=== PATIENT | female | born 1940 | race Caucasian/White ===

== ENCOUNTER 2016-04-21 10:38 | Emergency (ER) | payer MEDICAID, MEDICARE ==
[~2016-04-21 10:38] MED LIST: Sodium Chloride 0.9% 1,000 ML BAG ONE; Sodium Chloride 0.9% 100 ML BAG ONE
[2016-04-21] MEDS ORDERED: Acetaminophen 500 MG TAB ONE (11:18)
[2016-04-21 11:23] LABS: Bilirubin Negative (Negative); Blood, Urine Trace (Negative); Clarity Clear (Clear); Glucose, Urine (Dipstick) Negative (Negative); Leukocyte Trace (Negative); Nitrite Negative (Negative); Protein, Urine (Dipstick) 100 mg/dL (Neg-Trace); pH, Urine 6.5 (5.0-9.0)
[2016-04-21 11:24] LABS: RBC/HPF 0-3 HPF (0-3)
--- NOTE | 2016-04-21 11:40 | RAD ---
CHEST ONE VIEW: History: Fever. FINDINGS: Portable upright chest: Atherosclerosis of the aorta. Enlarged cardiac silhouette. The pulmonary vessels are prominent. F ocal opacification of the right lung base due to focal parenchymal changes. There is no pneumothora x or osseous abnormality. IMPRESSION: 1. Right lower lobe opacification. There is evidence for pneumonia. Continued surveillance to ens ure resolution. 2. Atherosclerosis. POS: [facility]
[2016-04-21 11:52] LABS: Band 23 % (5-11); Lymphocytes 11 % (21-51); MDiff Complete? YES; Mean Corpuscular HGB CONC 32.9 g/dL (32.0-36.0); Mean Corpuscular Volume 88.3 fl (81.0-99.0); Mean Platelet Volume 7.1 fL (7.4-10.4); Metamyelocyte 1 % (0-0); Neutrophil 64 % (42-75); PLT Morphology Comment Appears Adequate; Platelet Count 291 thou/uL (130-400); RBC Morphology Normal; Reactive Lymphocytes 1 % (0-10); Red Blood Cell (RBC) Count 4.83 mill/uL (4.20-5.40); Vacuoles SLIGHT; White Blood Cell (WBC) Count 27.2 thou/uL (4.8-10.8)
[2016-04-21 11:53] LABS: ALT (SGPT) 19 U/L (0-55); AST (SGOT) 25 U/L (5-34); Albumin 3.8 g/dL (3.4-4.8); Alkaline Phosphatase 90 U/L (40-150); Anion Gap 18 mmol/L (10-20); BUN (Urea Nitrogen) 20 mg/dL (9.8-20.1); Bilirubin, Total 1.6 mg/dL (0.2-1.2); Calc. Creatinine Clearance 0 mL/min (70-130); Calcium 9.3 mg/dL (7.8-10.44); Carbon Dioxide 22 mmol/L (23-31); Chloride 104 mmol/L (98-107); Estimated GFR-MDRD 67; Globulin 3.5 g/dL (2.4-3.5); Glucose 150 mg/dL (83-110); Potassium 3.8 mmol/L (3.5-5.1); Protein, Total 7.3 g/dL (5.8-8.1); Sodium 140 mmol/L (136-145)
--- NOTE | 2016-04-21 11:53 | CT ---
CT BRAIN NONCONTRAST: HISTORY: A 75-year-old female with altered mental status. FINDINGS: There is no midline shift or any other mass effect. There is no evidence of acute intracranial hemo rrhage, large cortical infarct, obstructive hydrocephalus, or extraaxial fluid collection. The calv arium is intact. IMPRESSION: No acute intracranial findings. carrie [] POS: [facility]
[2016-04-21 11:54] LABS: Reflex for Review?? YES
[2016-04-21 11:57] LABS: CKMB 0.6 ng/mL (0-6.6); Troponin I Less than 0.010 ng/mL (< 0.028)
--- NOTE | 2016-04-21 12:04 | PICIS ---
[facility] EMERGENCY RECORD TRIAGE (WedApr 21, 2016 10:47 SFRE) TRIAGE NOTES: FEVER, FAMILY SAYS AMS. (WedApr 21, 2016 10:47 SFRE) PATIENT: NAME: Bessy Benitez, AGE: 75, GENDER: female, : Sat 1940, TIME OF GREET: WedApr 21, 2016 10:39, PREFERRED LANGUAGE: Georgian, ECODE BILLING MAP: [facility], SSN: [id number], Zip Code: [address], PHONE: , , , PERSON ID: [id number], PCP: Gaudencio FERRARA HAYWOOD. (WedApr 21, 2016 10:47 SFRE) KG WEIGHT: 63.50. (12:21 SFRE) COMPLAINT: SLURRED SPEECH. (WedApr 21, 2016 10:47 SFRE) ADMISSION: URGENCY: 3 Urgent, ADMISSION SOURCE: Home, TRANSPORT: Walk-in, BED: ED -01. (WedApr 21, 2016 10:47 SFRE) PAIN: No complaint of pain. (12:33 SFRE) IMMUNIZATIONS: Flu vaccine not up to date. (12:33 SFRE) SIRS SCORING: Heart Rate 110-139 (2), Temp range 101.2-102.0 (1), respiratory rate 12-24 (0), Mental status altered: yes (1), Total SIRS Score 4, Yes, Infection or Suspected Infection. (12:33 SFRE) SIRS NOTIFICATION: Yes, Infection or Suspected Infection, Attending: DR SOLITARIO ON ARRIVAL. (12:34 SFRE) TRIAGE SCREENING: Patient denies suicidal ideation, Patient denies presence of domestic violence. (12:35 SFRE) PROVIDERS: TRIAGE NURSE: Kamilah Pedro RN. (WedApr 21, 2016 10:47 SFRE) VITAL SIGNS: BP 143/57, Pulse 23, Resp 18, Temp 102.8, (Tympanic), Pain 0, O2 Sat 93, on 2L Oxygen, Time 04/21/2016 10:46. (10:46 SFRE) KNOWN ALLERGIES No Known Drug Allergies CURRENT MEDICATIONS Advair Diskus: BLISTER, WITH INHALATION DEVICE : Strength - 250 mcg-50 mcg/Dose : INHALATION Patient Dose: Unknown. (12:37 SFRE) Spiriva with HandiHaler: CAPSULE, WITH INHALATION DEVICE : Strength - 18 mcg : INHALATION Patient Dose: Unknown. (12:38 SFRE) Actos: TABLET : Strength - 45 mg : ORAL Patient Dose: 15 mg Oral once a day. (12:40 SFRE) lisinopril: TABLET : Strength - 20 mg : ORAL Patient Dose: 1 tab(s) Oral once a day. (12:40 SFRE) meloxicam: TABLET : Strength - 15 mg : ORAL Patient Dose: Unknown. (12:40 SFRE) &a-1R&a+25V*p+0X*h9528F*c202B*c15G*c2P*p-0X&a-25V&a+1R Name: Bessy Benitez : 1940 F75 MedRec: [id number] AcctNum: [id number] Prepared: Gaby Apr 21, 2016 19:22 by Interface Page 1 of 14 pMD [facility] EMERGENC[facility] RECORD Lasix: TABLET : Strength - 20 mg : ORAL Patient Dose: once a day. (12:42 SFRE) VITAL SIGNS VITAL SIGNS: BP: 143/57, Pulse: 23, Resp: 18, Temp: 102.8 (Tympanic), Pain: 0, O2 sat: 93 on 2L Oxygen, Time: 04/21/2016 10:46. (10:46 SFRE) BP: 143/57, Pulse: 103, Resp: 18, Temp: 102.8 (Tympanic), Pain: 0, O2 sat: 93 on 2L Oxygen, Time: 04/21/2016 10:46. (10:46 SFRE) BP: 115/52, Pulse: 104, Resp: 18, Temp: 99.8 (Tympanic), Pain: 0, O2 sat: 95 on 2L Oxygen, Time: 04/21/2016 12:32. (12:32 SFRE) BP: 119/61, Pulse: 84, Resp: 18, Temp: 97.8 (Tympanic), Pain: 0, O2 sat: 98 on 2L Oxygen, Time: 04/21/2016 14:11. (14:11 SFRE) BP: 118/55, Pulse: 84, Resp: 15, Temp: 97.8 (Tympanic), Pain: 0, O2 sat: 94 on 2L Oxygen, Time: 04/21/2016 15:06. (15:06 SFRE) BP: 108/50, Pulse: 84, Resp: 19, Temp: 97.6 (Tympanic), Pain: 0, O2 sat: 96 on 2L Oxygen, Time: 04/21/2016 15:28. (15:28 SFRE) BP: 103/54, Pulse: 81, Resp: 18, Temp: 97.6, Pain: 0, O2 sat: 97 on 2L, Time: 04/21/2016 17:10. (17:10 SFRE) NURSING ASSESSMENT: FOCUSED PAIN: aching pain, "ALL OVER", Patient is unable to relate pain to scale, Pain exacerbated by nothing, Nothing has been tried to alleviate the pain. (11:46 SFRE) NONVERBAL PAIN: Non-Verbal pain assessment findings include: No non-verbal complaints while at rest (0), Non-Verbal complaints not present with movement (0), Facial Grimaces not present at rest (0), Facial grimaces not present with movement (0), Bracing not present at rest (0), Bracing not present with movement (0), Restlessness not present at rest (0), Restlessness not present with movement (0), Rubbing not present at rest (0), Rubbing not present with movement (0), Result: 0. (11:47 SFRE) EYES: Focused eye assessment finding include pupils equally round and reactive to light, Left pupil 4 mm in size, Right pupil 4 mm in size. (11:47 SFRE) NEURO: Focused neuro assessment findings include patient alert, cooperative, No facial droop noted, Speech coherent, Weakness, GENERALIZED, No loss of consciousness. (11:48 SFRE) GCS: Eye opening: (4) - Spontaneous, Verbal: (5) - Oriented/conversive, Motor: (6) - Obeys commands/Spontaneous, GCS Total: 15. (11:48 SFRE) RESPIRATORY: Focused respiratory assessment findings include breath sounds clear. (11:50 SFRE) ABDOMEN: Focused abdominal assessment findings include abdomen soft, non tender, no complaint of nausea, no vomiting, Bowel sounds present. (11:50 SFRE) GENITOURINARY FEMALE: Notes: NO C/O. (11:50 SFRE) MUSCULOSKELETAL: Focused musculoskeletal assessment findings &a-1R&a+25V*p+0X*e5356R*c202B*c15G*c2P*p-0X&a-25V&a+1R Name: Bessy Benitez : 1940 F75 MedRec: [id number] AcctNum: [id number] Prepared: Gaby Apr 21, 2016 19:22 by Interface Page 2 of 14 pMD [facility] EM[facility] RECORD include normal range of motion, radial pulse +3, pedal pulse +3, posterior tibia pulse +3. (11:50 SFRE) NOTES: Notes: PER FAMILY THEY CALLED EMS AROUND 330/400 THIS AM THINKING PATIENT WAS HAVING A STROKE. SISTER REPORTED SLURRED SPEACH AND ARMS CROSSED ACROSS HER CHEST. PATIENT REFUSED EMS TRANSPORT THIS TIME. (13:56 SFRE) NURSING PROCEDURE: ELIMINATION (16:04 SFRE) ELIMINATION: Patient assisted to bedside commode, Patient had moderate amount of stool per bedpan, liquid in form, one blue pad utilized. NURSING PROCEDURE: IV IV SITE 1: IV therapy indicated for medication administration, IV established, to the right forearm, using a 20 gauge catheter, in one attempt, Saline lock established, Flushed with normal saline (mls): 5CC, Labs drawn at time of placement, labeled in the presence of the patient and sent to lab. (11:25 SFRE) FOLLOW-UP SITE 1: After procedure, no drainage at IV site, After procedure, no swelling at IV site, After procedure, no redness at IV site. (11:51 SFRE) After procedure, no drainage at IV site, After procedure, no swelling at IV site, After procedure, no redness at IV site. (14:43 SFRE) NURSING PROCEDURE: NURSE NOTES NURSES NOTES: Patient in no apparent distress, Patient resting quietly. (12:46 SFRE) Patient in no apparent distress, Patient resting quietly, Notes: ZERO NEEDS AT THIS TIME. (14:10 SFRE) Patient in no apparent distress, Patient resting quietly, Notes: AWAITING TRANSPORTATION TO [place]. (14:42 SFRE) Patient in no apparent distress, Patient resting quietly, Pillow given to patient, Notes: ZERO NEEDS AT THIS TIME. (15:27 SFRE) Notes: CONTINUE TO WAIT ON TRANSPORT. (15:38 SFRE) NURSING PROCEDURE: TRANSFER (17:10 SFRE) TRANSFER: Reason for transfer need for specialized care, Diagnosis: SEPSIS, Accepting institution: [facility], Accepting physician: ANDREY, Referring physician: ARIE, Transported by urgent ambulance, accompanied by emergency medical services personnel, Report called to receiving facility, UNAVAILABLE, Summary of Care printed, Copy of patient record prepared for receiving facility, Medication reconciliation form prepared and sent to receiving facility, Patient consent for transfer signed, Family member contacted. EQUIPMENT WITH PATIENT: Equipment with patient at time of transfer forestry conservation worker, Saline lock intact and patent at time of transfer, Equipment with patient at time of transfer IVF. SAFETY: Side rails up, Cart/Stretcher in lowest position, Family at bedside, Call light within reach, Hospital ID band on. VITAL SIGNS: BP: 103, / 54, Pulse: 81, Resp: 18, Temp: 97.6, &a-1R&a+25V*p+0X*d7428F*c202B*c15G*c2P*p-0X&a-25V&a+1R Name: Bessy Benitez : 1940 F75 MedRec: [id number] AcctNum: [id number] Prepared: WedApr 21, 2016 19:22 by Interface Page 3 of 14 pMD [facility] EM[facility] RECORD Pain: 0, O2 sat: 97, on: 2L. NURSING PROCEDURE: TRANSPORT TO TESTS (11:40 SFRE) TRANSPORT TO TESTS: Transport indicated to facilitate diagnosis, Patient transported to CT scan, via cart, Accompanied by x-ray electroencephalograph technician. NURSING PROCEDURE: URINE COLLECTION (11:03 SFRE) URINE COLLECTION FEMALE: Urine collected by void, output amount (mL) 300, urine chrystal in color, and cloudy, Specimen labeled in the presence of the patient and sent to lab. ORDER DETAILS Order Name: Ammonia, Status: Canceled, Time: 11:35 04/21/2016, User: System, - Ordered for: MD Solitario Anthony, - Entered by: MD Solitario Anthony - korey Apr 21, 2016 11:11, - Quantity: 1, Order Name: Cardiac Profile w/CKMB & Troponin - I, Status: Active, Time: 11:11 04/21/2016, User: ABUS, - Ordered for: MD Solitario Anthony, - Entered by: MD Solitario Anthony - Tue Apr 21, 2016 11:11, - Quantity: 1, Order Name: CBC with Differential, Status: Active, Time: 11:11 04/21/2016, User: ABUS, - Ordered for: MD Solitario Anthony, - Entered by: MD Solitario Anthony - Tue Apr 21, 2016 11:11, - Quantity: 1, Order Name: Comprehensive Metabolic Panel, Status: Active, Time: 11:11 04/21/2016, User: ABUS, - Ordered for: MD Solitario Anthony, - Entered by: MD Solitario Anthony - Tue Apr 21, 2016 11:11, - Quantity: 1, Order Name: CT Brain WO Con, Status: Active, Time: 11:12 04/21/2016, User: ABUS, - Ordered for: MD Solitario Anthony, - Entered by: MD Solitario Anthony - Tue Apr 21, 2016 11:12, - Quantity: 1, Order Name: Culture, Blood, Status: Active, Time: 11:39 04/21/2016, User: ABUS, - Ordered for: MD Solitario Anthony, - Entered by: MD Solitario Anthony - Tue Apr 21, 2016 11:39, - Quantity: 1, Order Name: Culture, Urine, Status: Active, Time: 11:11 04/21/2016, User: ABUS, - Ordered for: MD Solitario Anthony, - Entered by: MD Solitario Anthony - Tue Apr 21, 2016 11:11, - Quantity: 1, Order Name: EKG 12 Lead in Emergency Room, Status: Active, Time: &a-1R&a+25V*p+0X*n0089F*c202B*c15G*c2P*p-0X&a-25V&a+1R Name: Madelyn Benitezyce Zee : 1940 F75 MedRec: [id number] AcctNum: [id number] Prepared: WedApr 21, 2016 19:22 by Interface Page 4 of 14 pMD [facility] EMERG[facility] RECORD 11:11 04/21/2016, User: GUERLINE, - Ordered for: MD Solitario Anthony, - Entered by: MD Solitario Anthony - Tue Apr 21, 2016 11:11, - Quantity: 1, Order Name: INTAKE& OUTPUT MONITORING ED, Status: Done, Time: 12:13 04/21/2016, User: ALFREDA, - Ordered for: MD Solitario Anthony, - Entered by: MD Solitario Anthony - Tue Apr 21, 2016 12:11, - Quantity: 1, Order Name: Lactic Acid with repeat, Status: Active, Time: 11:25 04/21/2016, User: GUERLINE, - Ordered for: MD Solitario Anthony, - Entered by: MD Solitario Anthony - Tue Apr 21, 2016 11:25, - Quantity: 1, Order Name: O2 TO KEEP SATURATION > 95%, Status: Done, Time: 12:13 04/21/2016, User: ALFREDA, - Ordered for: MD Solitario Anthony, - Entered by: MD Solitario Anthony - Tue Apr 21, 2016 12:11, - Quantity: 1, Order Name: SALINE LOCK, Status: Done, Time: 11:34 04/21/2016, User: ALFREDA, - Ordered for: MD Solitario Anthony, - Entered by: MD Solitario Anthony - Tue Apr 21, 2016 11:11, - Quantity: 1, Order Name: Thyroid Stimulating Hormone, Status: Active, Time: 11:11 04/21/2016, User: US, - Ordered for: MD Solitario Anthony, - Entered by: MD Solitario Anthony - Tue Apr 21, 2016 11:11, - Quantity: 1, Order Name: Urinalysis with Microscopic, Status: Active, Time: 11:11 04/21/2016, User: GUERLINE, - Ordered for: MD Solitario Anthony, - Entered by: MD Solitario Anthony - Tue Apr 21, 2016 11:11, - Quantity: 1, Order Name: XR Chest 1 View Portable, Status: Active, Time: 11:11 04/21/2016, User: ABUS, - Ordered for: MD Arie, Ed, - Entered by: MD Solitario Anthony - WedApr 21, 2016 11:11, - Quantity: 1. MEDICATION ADMINISTRATION SUMMARY Drug Name: vancomycin intravenous, Dose Ordered: 1 g, Route: IV Fluid Infusion, Status: Given, Time: 13:20 04/21/2016, Drug Name: cefepime, Dose Ordered: 2 g, Route: IV Piggy Back, Status: Given, Time: 12:30 04/21/2016, Drug Name: *sodium chloride 0.9 % intravenous, Dose Ordered: 30 mL/kg, Route: IV Fluid Infusion, Status: Given, Time: 12:29 04/21/2016, Drug Name: *Tylenol Extra Strength, Dose Ordered: 1000 mg, Route: Oral, Status: Given, Time: 11:45 04/21/2016, *Additional information &a-1R&a+25V*p+0X*n7140U*c202B*c15G*c2P*p-0X&a-25V&a+1R Name: Bessy Benitez : 1940 F75 MedRec: [id number] AcctNum: [id number] Prepared: WedApr 21, 2016 19:22 by Interface Page 5 of 14 pMD [facility] EMERGENCY RECORD available in notes, Detailed record available in Medication Service section. MEDICATION SERVICE cefepime: Order: cefepime (cefepime HCl) - Dose: 2 g : IV Piggy Back Schedule: Now Ordered by: Ed Solitario MD Entered by: dE Solitario MD WedApr 21, 2016 11:43 Documented as given by: Kamilah Pedro RN WedApr 21, 2016 12:30 Patient, Medication, Dose, Route and Time verified prior to administration. Amount given: 2G, IV SITE #1 IVPB or drip, initial infusion, via pump tubing, Awake and alert- acceptable, Catheter placement confirmed via flush prior to administration, IV site without signs or symptoms of infiltration during medication administration, No swelling during administration, No drainage during administration, IV flushed after administration, Correct patient, time, route, dose and medication confirmed prior to administration, Patient advised of actions and side-effects prior to administration, Allergies confirmed and medications reviewed prior to administration, Patient in position of comfort, Side rails up, Cart in lowest position, Family at bedside. : Follow Up : Response assessment performed, No signs or symptoms of allergic reaction noted, Site inspection shows, No swelling at administration site, No drainage at administration site, No bleeding at site, No bruising noted at site, _IV SITE #1:_, Medication infusion discontinued, on WedApr 21, 2016 13:10, 40 minutes, ., Total amount infused: 2G, IV Line flushed after administration. (14:01 SFRE) sodium chloride 0.9 % intravenous: Order: sodium chloride 0.9 % intravenous (0.9 % sodium chloride) - Dose: 30 mL/kg : IV Fluid Infusion Schedule: Now Notes: Total IVF Intake to equal 30ml/kg Ordered by: Ed Solitario MD Entered by: Ed Solitario MD WedApr 21, 2016 11:43 , Acknowledged by: Kamilah Pedro RN WedApr 21, 2016 12:29 Documented as given by: Kamilah Pedro RN WedApr 21, 2016 12:29 Patient, Medication, Dose, Route and Time verified prior to administration. Amount given: 1L, IV SITE #1 IV fluids established for hydration, IV SITE #1 into right forearm, IV SITE #1 1st bag hung, amount 1 Liter hung, IV SITE #1 Rate of infusion (non-bolus) Infusing at 200 ml/hr, via primary tubing, via pump tubing, IV SITE #1 on IV pump, Awake and alert- acceptable, Catheter placement confirmed via flush prior to administration, IV site without signs or symptoms of infiltration during medication administration, No swelling during administration, No drainage during administration, IV flushed after administration, Correct patient, time, route, dose and medication confirmed prior to &a-1R&a+25V*p+0X*d0490C*c202B*c15G*c2P*p-0X&a-25V&a+1R Name: Bessy Benitez Zee : 1940 F75 MedRec: [id number] AcctNum: [id number] Prepared: WedApr 21, 2016 19:22 by Interface Page 6 of 14 pMD [facility] EMERG[facility] RECORD administration, Patient advised of actions and side-effects prior to administration, Allergies confirmed and medications reviewed prior to administration, Patient in position of comfort, Side rails up, Cart in lowest position, Family at bedside. : Follow Up : Response assessment performed, No signs or symptoms of allergic reaction noted, Site inspection shows, No swelling at administration site, No drainage at administration site, No bleeding at site, No bruising noted at site, _IV SITE #1:_, IV fluid infusion discontinued, on WedApr 21, 2016 16:12, Total fluid hydration time IV site 1 3 hours, 45 minutes, ., Total amount infused: 1L. (16:12 SFRE) : Follow Up : Response assessment performed, No signs or symptoms of allergic reaction noted, Site inspection shows, No swelling at administration site, No drainage at administration site, No bleeding at site, No bruising noted at site, _IV SITE #1:_, IV fluid infusion continued upon transfer from emergency department, on WedApr 21, 2016 17:17, Total fluid hydration time IV site 1 4 hours, 50 minutes, ., Total amount infused: 200ML. (17:00 SFRE) Tylenol Extra Strength: Order: Tylenol Extra Strength (acetaminophen) - Dose: 1000 mg : Oral Schedule: Now Notes: GIVEN PER PROTOCOL FOR TEMP 102.8 Ordered by: Ed Solitario MD Entered by: Asia Rodriguez RN WedApr 21, 2016 11:45 Documented as given by: Asia Rodriguez RN WedApr 21, 2016 11:45 Patient, Medication, Dose, Route and Time verified prior to administration. Amount given: 1GM, Site: Medication administered P.O., Correct patient, time, route, dose and medication confirmed prior to administration, Patient advised of actions and side-effects prior to administration, Allergies confirmed and medications reviewed prior to administration, Administered by BLU FOSTER, Patient in position of comfort, Side rails up, Cart in lowest position, Family at bedside. vancomycin intravenous: Order: vancomycin intravenous (vancomycin HCl) - Dose: 1 g : IV Fluid Infusion Schedule: Now Ordered by: Ed Solitario MD Entered by: Ed Solitario MD WedApr 21, 2016 11:42 , Acknowledged by: Kamilah Pedro RN WedApr 21, 2016 12:32 Documented as given by: Kamilah Pedro RN WedApr 21, 2016 13:20 Patient, Medication, Dose, Route and Time verified prior to administration. Amount given: 1G, IV SITE #1 IVPB or drip, subsequent infusion, Premixed, via pump tubing, on an IV pump, Awake and alert- acceptable, Catheter placement confirmed via flush prior to administration, IV site without signs or symptoms of infiltration during medication administration, No swelling during administration, No drainage during administration, IV flushed after administration, Correct patient, time, route, dose and medication confirmed prior to administration, Patient advised of actions and side-effects prior to &a-1R&a+25V*p+0X*x2650T*c202B*c15G*c2P*p-0X&a-25V&a+1R Name: Bessy Benitez : 1940 F75 MedRec: [id number] AcctNum: [id number] Prepared: WedApr 21, 2016 19:22 by Interface Page 7 of 14 pMD [facility] EM[facility] RECORD administration, Allergies confirmed and medications reviewed prior to administration. : Follow Up : Response assessment performed, No signs or symptoms of allergic reaction noted, Site inspection shows, No swelling at administration site, No drainage at administration site, No bleeding at site, No bruising noted at site, _IV SITE #1:_, Medication infusion discontinued, on WedApr 21, 2016 15:24, Total infusion time IV site 1 2 hours, 5 minutes, ., IV Line flushed after administration. (15:24 SFRE) HPI MENTAL STATUS CHANGES (11:12 ABUS) CHIEF COMPLAINT: Patient presents for evaluation of mental status changes. HISTORIAN: History provided by patient's family, Son and Daughter, 75 yr old PMH COPD, HF, HTN, DM who comes in with family who reports she was last normal at 3pm on 04/20/16 (per daughter). At around 4-5 am today she stumbled into the daughter room with change in speech. EMS was called but the patient refused to go to the ED. the son convinced her to come in today. LOCATION: Symptoms are generalized. QUALITY: Patient is, oriented to person, oriented to place. SEVERITY: Currently symptoms are mild. TIME COURSE: Gradual onset of symptoms, 1, days ago. ASSOCIATED WITH: No associated alcohol use, No associated chest pain, No associated dizziness, Associated with fever, Associated with nausea, No associated seizures, No associated syncope, No associated trauma, No associated vomiting. EXACERBATED BY: Patient's condition exacerbated by nothing. RELIEVED BY: Patient's condition relieved by nothing. RISK FACTORS: CVA/TIA risk factors, Heart disease, Diabetes mellitus, Hypertension. ROS (11:18 ABUS) CONSTITUTIONAL: Historian denies chills, reports fever, reports lethargy. EYES: Negative eye review of systems, Historian denies eye pain, denies vision changes. ENT: Negative ears, nose, throat review of systems, Historian denies rhinorrhea, denies sore throat, denies voice changes. CARDIOVASCULAR: Negative cardiovascular review of systems, Historian denies chest pain, denies palpitations. RESPIRATORY: Negative respiratory review of systems, Historian denies cough, denies shortness of breath. GI: Negative gastrointestinal review of systems, Historian denies abdominal pain, denies constipation, denies diarrhea, denies nausea, denies vomiting. GENITOURINARY FEMALE: Negative genitourinary review of systems, Historian denies dysuria, denies frequency. MUSCULOSKELETAL: Negative musculoskeletal review of systems, &a-1R&a+25V*p+0X*o0135D*c202B*c15G*c2P*p-0X&a-25V&a+1R Name: Bessy Benitez : 1940 F75 MedRec: [id number] AcctNum: [id number] Prepared: Gaby Apr 21, 2016 19:22 by Interface Page 8 of 14 pMD [facility] EM[facility] RECORD Historian denies back pain, denies fall, denies injury. SKIN: Negative skin review of systems, Historian denies rash, denies skin changes. NEUROLOGIC: Historian reports confusion, denies focal weakness, reports gait changes, reports mental status changes, reports speech changes. HEMO/LYMPHATIC: Normal hematologic/lymphatic system review, Historian denies abnormal blood clotting. ALLERGIC/IMMUNOLOGIC: Normal allergy/immunologic system review, Historian denies frequent infections. PHYSICAL EXAM (11:18 ABUS) CONSTITUTIONAL: Vital Signs Reviewed, Patient febrile, temperature of 102.8, Pulse, tachycardic, Blood pressure normal, Respiratory rate normal, Patient appears non toxic, Patient appears pain free, Patient, confused. HEAD: Head exam normal, Head exam included findings of head atraumatic, normocephalic, No apparent facial droop or asymmetry. EYES: Eye exam normal, Eye exam included findings of eyelids normal to inspection, Pupils equally round and reactive to light, Extraocular muscles intact, no nystagmus. ENT: ENT exam normal, Ear exam normal, external ear normal, tympanic membranes normal, no bleeding, Pharynx exam normal, Uvula exam normal, Tonsil exam normal, Mouth exam normal, mucous membranes moist, teeth normal. NECK: Neck exam normal, Neck exam included findings of normal range of motion, Trachea midline, no meningeal signs, no cervical adenopathy, no tenderness. RESPIRATORY CHEST: Respiratory and chest exam normal, Respiratory exam included findings of no respiratory distress, Breath sounds clear. CARDIOVASCULAR: Cardiovascular exam included findings of, rate tachycardic, Heart sounds normal, normal S1, normal S2, no murmurs. ABDOMEN FEMALE: Abdominal exam included findings of abdomen nontender, Bowel sounds normal, no distension, no mass, no pulsatile masses, no peritoneal signs, no rigidity, no guarding, no rebound, Rovsing's sign absent. BACK: Back exam normal, Back exam included findings of normal inspection, range of motion normal, no tenderness. UPPER EXTREMITY: Upper extremity exam normal, Upper extremity exam included findings of inspection normal, Range of motion normal, Motor strength normal, Sensation intact, Radial pulse normal, no cyanosis, no clubbing, no edema, No drfit. LOWER EXTREMITY: Lower extremity exam normal, Lower extremity exam included findings of inspection normal, Range of motion normal, Motor strength normal, Sensation intact, Posterior tibial pulse normal, Pedal pulse normal, no cyanosis, no clubbing, no edema, &a-1R&a+25V*p+0X*z6385U*c202B*c15G*c2P*p-0X&a-25V&a+1R Name: Bessy Benitez : 1940 F75 MedRec: [id number] AcctNum: [id number] Prepared: Gaby Apr 21, 2016 19:22 by Interface Page 9 of 14 pMD [facility] EM[facility] RECORD No drift. NEURO: Neuro exam normal, Neuro exam findings include patient oriented to person, place and time, Speech normal, Gait normal, Cranial nerves intact, no focal motor deficits, no focal sensory deficits. SKIN: Skin exam normal, Skin exam included findings of skin warm, dry, and normal in color, no rash. PSYCHIATRIC: Psychiatric exam normal, Normal affect. LAB INTERPRETATION (12:13 ABUS) INTERPRETATION: I reviewed the lab results, All labs normal except as noted below, CBC abnormal, White blood cell count elevated, Hemoglobin normal, Hematocrit normal, Platelets normal, Chemistry normal, Liver functions abnormal, Total bilirubin elevated, AST(SGOT) normal, ALT(SGPT) normal, Alk Phos normal, Urinalysis abnormal, positive for leukocytes, positive for erythrocytes, Lactate normal. EVENTS TRANSFER: Triage to Emergency Main ED -01. (WedApr 21, 2016 10:47 SFRE) Removed from Emergency Main ED -01. (17:17 SFRE) RADIOLOGYINTERPRETATION (11:48 ABUS) CHEST: Films of the chest show, to the right middle, no pneumothorax, no hemothorax, no pleural effusion. PROPERTY AND SUPPLY OFFICER: Preliminary review of x-rays by, ED Physician, Radiologist. EKG INTERPRETATION (11:30 ABUS) 12 LEAD EKG INTERPRETATION: 12 lead EKG interpreted by Emergency Department Physician at time of study, 12 lead EKG shows normal sinus rhythm, Rate (beats per minute): 95, with no ectopics, Conduction with, incomplete right bundle branch block, ST segments normal, T waves normal, [place] normal, Clinical impression:, non-specific EKG. DOCTOR NOTES (11:21 ABUS) TEXT: 75 yr old PMH COPD, HF, HTN, DM who comes in with family who reports she was last normal at 3pm on 04/20/16 (per daughter). At around 4-5 am today she stumbled into the daughter room with change in speech. EMS was called but the patient refused to go to the ED. the son convinced her to come in today. recent reports of UTI. Exam: appears confused (knows name and location), speech is intermittently slurred. Follows commands. No apparent motor or sensory deficits. Pt is febrile here in the ED. DDX: CVA, Intracerebral Hemorrhage, Electrolyte abnormality, Metabolic Abnormaliy, Hyperammonemia, UTI, Pneumonia. PLAN: IV, IV Fluids, CBC, CMP, Lactic acid, UA, CT head, CXR, ECG. Pt &a-1R&a+25V*p+0X*h4371K*c202B*c15G*c2P*p-0X&a-25V&a+1R Name: Bessy Benitez : 1940 F75 MedRec: [id number] AcctNum: [id number] Prepared: Gaby Apr 21, 2016 19:22 by Interface Page 10 of 14 pMD [facility] EMERGENCY RECORD does not meet criteria for tPA if CVA present. Given WBC of 27K, Temp of 102.8, tachycardia, new supplemental O2 requirement, elevated Tbili, and UA showing UTI and CXR showing RML pneumoania, sepsis with multiorgan involvement is more likely the reason for change in mental status and slurred speech. The patient also has no motor deficit on exam. DISPO: Pending results and response to treatment UPDATE/REASSESSMENT: CXR shows RML infiltrate --> pneumonia, UA --> UTI. Patient meets criteria for sepsis (fever, tachycardia and multiple sources of infection). Will start empiric broad spectrum antibiotics and get Bcx and Ucx. Final Dispo: Admission for sepsis with multiorgan involvement. All results of testing and evaluation were shared with the patient and family who verbalized understanding and agreement with the plan of care. Level of Complexity / Medical Decision Making: High REPORT GIVEN TO: Dr. Mary tate [place] who accepted the patient for transfer. PROBLEM LIST No recorded problems DIAGNOSIS (11:52 ABUS) FINAL: PRIMARY: Sepsis, ADDITIONAL: Altered mental status, Pneumonia, UTI. DISPOSITION PATIENT: Disposition Type: Transfer, Disposition: Transfer to [facility], Disposition Transport: Ambulance, Condition: Fair. (11:52 ABUS) Patient left the department. (17:17 SFRE) IMAGING TRANSFER PACKET: Image captured from scanner. (14:44 JPER) Page 2 added. Image captured from scanner. (14:44 JPER) Page 3 added. Image captured from scanner. (14:44 JPER) Page 4 added. Image captured from scanner. (14:45 JPER) *EKG: Image captured from scanner. (14:47 JPER) WORKSHEET: Image captured from scanner. (17:08 JPER) Page 2 added. Image captured from scanner. (17:08 JPER) *SUPPLY CHARGE SHEET: Image captured from scanner. (17:09 JPER) VITAL SIGNS: Image captured from scanner. (17:14 SFRE) ADMIN DIGITAL SIGNATURE: MD Solitario Anthony. (11:52 ABUS) CRISTIAN Pedro, Kamilah. (17:15 SFRE) CRISTIAN Pedro, Kamilah. (17:17 SFRE) MD Solitario Anthony. (19:09 ABUS) RESULTS &a-1R&a+25V*p+0X*y0349G*c202B*c15G*c2P*p-0X&a-25V&a+1R Name: Bessy Benitez : 1940 F75 MedRec: [id number] AcctNum: [id number] Prepared: WedApr 21, 2016 19:22 by Interface Page 11 of 14 pMD [facility] RADIOLOGY: XR Chest 1 View Portable Observe DT: WedApr 21, 2016 11:13, CXRP CHEST ONE VIEW: History: Fever. FINDINGS: Portable upright chest: Atherosclerosis of the aorta. Enlarged cardiac silhouette. The pulmonary vessels are prominent. F ocal opacification of the right lung base due to focal parenchymal changes. There is no pneumothora x or osseous abnormality. IMPRESSION: 1. Right lower lobe opacification. There is evidence for pneumonia. Continued surveillance to ens ure resolution. 2. Atherosclerosis. POS: [facility] . (12:09 ABUS) LABORATORY: Urinalysis with Microscopic Collection DT: WedApr 21, 2016 11:22, Color Yellow , Range (Yellow), Clarity Clear , Range (Clear), Specific [place], Urine 1.020 , Range (1.005-1.030), pH, Urine 6.5 , Range (5.0-9.0), *Leukocyte Trace - H , Range (Negative), Nitrite Negative , Range (Negative), *Protein, Urine (Dipstick) 100 - H mg/dL, Range (Neg-Trace), Glucose, Urine (Dipstick) Negative mg/dL, Range (Negative), Ketone, Urine Negative mg/dL, Range (Negative), Urobilinogen 1.0 mg/dL, Range (0.2-1.0), Bilirubin Negative , Range (Negative), *Blood, Urine Trace - H , Range (Negative), RBC/HPF 0-3 HPF, Range (0-3), *WBC/HPF 4-6 - H HPF, Range (0-3). (11:36 ABUS) Cardiac Profile w/CKMB & TropI Collection DT: WedApr 21, 2016 11:33, CKMB 0.6 ng/mL, Range (0-6.6), Troponin I Less than 0.010 ng/mL, Range (< 0.028), Reference Range , 0.00 - 0.028 ng/mL Negative 0.029 - 0.29 ng/mL , Indeterminate Greater or Equal to 0.3 ng/mL Strongly suggests [place] , . (12:09 ABUS) CBC with Differential Collection DT: WedApr 21, 2016 11:33, &a-1R&a+25V*p+0X*i8009G*c202B*c15G*c2P*p-0X&a-25V&a+1R Name: Bessy Benitez : 1940 F75 MedRec: [id number] AcctNum: [id number] Prepared: WedApr 21, 2016 19:22 by Interface Page 12 of 14 pMD [facility] *White Blood Cell (WBC) Count 27.2 - H thou/uL, Range (4.8-10.8), Red Blood Cell (RBC) Count 4.83 mill/uL, Range (4.20-5.40), Hemoglobin 14.0 g/dL, Range (12.0-16.0), Hematocrit 42.7 %, Range (36.0-47.0), Mean Corpuscular Volume 88.3 fl, Range (81.0-99.0), Mean Corpuscular Hemoglobin 29.0 pg, Range (27.0-31.0), Mean Corpuscular HGB CONC 32.9 g/dL, Range (32.0-36.0), RBC Distribution Width 13.0 %, Range (11.5-14.5), Platelet Count 291 thou/uL, Range (130-400), *Mean Platelet Volume 7.1 - L fL, Range (7.4-10.4), Neutrophil 64 %, Range (42-75), *Band 23 - H %, Range (5-11), *Lymphocytes 11 - L %, Range (21-51), Reactive Lymphocytes 1 %, Range (0-10), *Metamyelocyte 1 - H %, Range (0-0), Vacuoles SLIGHT , PLT Morphology Comment Appears Adequate , RBC Morphology Normal . (12:09 ABUS) Comprehensive Metabolic Panel Collection DT: WedApr 21, 2016 11:33, Sodium 140 mmol/L, Range (136-145), Potassium 3.8 mmol/L, Range (3.5-5.1), Chloride 104 mmol/L, Range (98-107), *Carbon Dioxide 22 - L mmol/L, Range (23-31), Anion Gap 18 mmol/L, Range (10-20), BUN (Urea Nitrogen) 20 mg/dL, Range (9.8-20.1), Creatinine 0.83 mg/dL, Range (0.6-1.1), Estimated GFR-MDRD 67 , Reference Range for Estimated GFR: Greater than 90, mL/min/1.73 m2 NOTE: The MDRD equation has not been validated for use, with the elderly (over 70 years of age), women, patients with, serious comorbid condition or persons with extremes of body size, muscle, mass, or nutritional status. , *Glucose 150 - H mg/dL, Range (83-110), Calcium 9.3 mg/dL, Range (7.8-10.44), *Bilirubin, Total 1.6 - H mg/dL, Range (0.2-1.2), Protein, Total 7.3 g/dL, Range (5.8-8.1), NOTE: Plasma values are generally 0.3 to 0.5 g/dL higher than serum values, due to the presence of fibrinogen. , Albumin 3.8 g/dL, Range (3.4-4.8), Globulin 3.5 g/dL, Range (2.4-3.5), *Alb/Glob Ratio 1.1 - L g/dL, Range (1.2-2.2), Alkaline Phosphatase 90 U/L, Range (40-150), AST (SGOT) 25 U/L, Range (5-34), ALT (SGPT) 19 U/L, Range (0-55). (12:09 ABUS) Lactic Acid for Sepsis Collection DT: WedApr 21, 2016 11:33, Lactic Acid - Sepsis 1.5 mmol/L, Range (0.5-2.2). (12:09 ABUS) Thyroid Stimulating Hormone Collection DT: WedApr 21, 2016 11:33, &a-1R&a+25V*p+0X*h5624A*c202B*c15G*c2P*p-0X&a-25V&a+1R Name: Emmanuel Bessy Zee : 1940 F75 MedRec: [id number] AcctNum: [id number] Prepared: WedApr 21, 2016 19:22 by Interface Page 13 of 14 pMD [facility] Thyroid Stimulating Hormone 0.5959 uIU/mL, Range (0.35-4.94). (12:34 ABUS) Rubin: GUERLINE=MD Arie, Ed RANGEL=CRISTIAN Rodriguez, Asia GANT=CRISTIAN Pedro, Kamilah &a-1R&a+25V*p+0X*q0518U*c202B*c15G*c2P*p-0X&a-25V&a+1R Name: EmmanuelBessy : 1940 F75 MedRec: [id number] AcctNum: [id number] Prepared: WedApr 21, 2016 19:22 by Interface Page 14 of 14 pMD [facility]
[2016-04-21] MEDS ORDERED: Cefepime 1 GM VIAL ONE (12:14)
== END 2016-04-21 16:46 | disposition short-term general hospital (02) ==
LOC: MADERS 10:38
DX: A41.9 Sepsis, unspecified organism (principal); J18.9 Pneumonia, unspecified organism; N39.0 Urinary tract infection, site not specified; Z79.899 Other long term (current) drug therapy
CPT/HCPCS: 36415; 70450; 71010; 80053; 81001; 82553; 83605; 84443; 84484; 85025; 85060; 87040; 87086; 93005; 96361; 96365; 96366; 96367; J0692; J3370; J7050

== ENCOUNTER 2016-09-03 11:56 | Emergency (ER) | payer MEDICARE ==
[~2016-09-03 11:56] MED LIST changes: -Sodium Chloride 0.9% 100 ML BAG ONE
[2016-09-03 12:22] LABS: #Basophils 0.1 thou/uL (0.0-0.2); #Eosinphils 0.2 thou/uL (0.0-0.7); #Lymphocytes 2.1 thou/uL (1.20-3.40); #Monocytes 0.8 thou/uL (0.11-0.59); #Neutrophils 4.6 thou/uL (1.40-6.50); %Basophils 0.8 % (0.0-1.0); %Lymphocytes 27.9 % (21.0-51.0); %Monocytes 9.8 % (0.0-10.0); %Neutrophils 59.5 % (42.0-75.0); Hemoglobin 13.2 g/dL (12.0-16.0); Mean Corpuscular Hemoglobin 25.9 pg (27.0-31.0); Mean Corpuscular Volume 83.5 fl (81.0-99.0); Mean Platelet Volume 6.6 fL (7.4-10.4); Platelet Count 392 thou/uL (130-400); RBC Distribution Width 14.9 % (11.5-14.5); White Blood Cell (WBC) Count 7.6 thou/uL (4.8-10.8)
[2016-09-03 12:38] LABS: Anion Gap 15 mmol/L (10-20); BUN (Urea Nitrogen) 23 mg/dL (9.8-20.1); Calc. Creatinine Clearance 0 mL/min (70-130); Calcium 9.3 mg/dL (7.8-10.44); Carbon Dioxide 26 mmol/L (23-31); Chloride 100 mmol/L (98-107); Estimated GFR-MDRD 31; Glucose 126 mg/dL (83-110); Potassium 3.8 mmol/L (3.5-5.1); Sodium 137 mmol/L (136-145)
[2016-09-03 12:44] LABS: CKMB 1.4 ng/mL (0-6.6); Troponin I Less than 0.010 ng/mL (< 0.028)
--- NOTE | 2016-09-03 13:05 | CT ---
CT BRAIN HISTORY: A 75-year-old with a history of slurred speech. COMPARISON: 04/21/2016 TECHNIQUE: Noncontrast enhanced CT images of the brain were obtained. FINDINGS: Images demonstrate no evidence of intracranial masses, hemorrhages, strokes, or contusions. The hien tricles are of normal size. IMPRESSION: Normal CT brain. POS: [facility]
--- NOTE | 2016-09-03 13:11 | CT ---
CT OF CERVICAL SPINE PERFORMED WITHOUT CONTRAST ENHANCEMENT: Date: 09/03/16 HISTORY: Neck pain. FINDINGS: Vertebral bodies are normal in height. Degenerative changes are seen along the course of the spine w ith some moderate disc narrowing at C6-7. There are degenerative facet changes present. Facets are i n normal alignment. Carotid bulb calcifications are noted. There is no significant canal or foramina l stenosis seen. IMPRESSION: Mild arthritic changes of the spine. No acute process. POS: [facility]
--- NOTE | 2016-09-03 13:12 | RAD ---
AP VIEW CHEST 09/03/2016 HISTORY: Altered mental status. COMPARISON: 05/12/2016 FINDINGS: AP view chest again demonstrates cardiomegaly. Some area of scar is seen in the right lower lobe. Mild pulmonary vascular congestion is seen. No significant interval change is seen since the previo us comparison exam from 05/12/2016. IMPRESSION: 1. Cardiomegaly. 2. No other acute intrathoracic abnormality is seen. POS: [facility]
== END 2016-09-03 13:50 | disposition home or self-care (01) ==
LOC: MADERS 11:56
DX: E86.0 Dehydration (principal); R55 Syncope and collapse; J44.9 Chronic obstructive pulmonary disease, unspecified; I10 Essential (primary) hypertension; E11.9 Type 2 diabetes mellitus without complications; Z87.891 Personal history of nicotine dependence; Z87.01 Personal history of pneumonia (recurrent); Z79.899 Other long term (current) drug therapy; Z79.2 Long term (current) use of antibiotics
CPT/HCPCS: 36416; 70450; 71010; 72125; 80048; 82553; 84484; 85025; 93005; 96360; J7050

== ENCOUNTER 2016-11-23 11:36 | Outpatient (CLI) | payer MEDICARE ==
[2016-11-23 12:38] LABS: ALT (SGPT) 14 U/L (8-55); AST (SGOT) 21 U/L (5-34); Alkaline Phosphatase 89 U/L (40-150); Anion Gap 13 mmol/L (10-20); BUN (Urea Nitrogen) 13 mg/dL (9.8-20.1); Bilirubin, Total 0.8 mg/dL (0.2-1.2); Calc. Creatinine Clearance 0 mL/min (70-130); Calcium 9.7 mg/dL (7.8-10.44); Carbon Dioxide 26 mmol/L (23-31); Cardiac Risk 5.1 (Less than 4.5); Chloride 102 mmol/L (98-107); Cholesterol 214 mg/dl (< 200 Desired); Estimated GFR-MDRD 69; Globulin 3.8 g/dL (2.4-3.5); Glucose 101 mg/dL (83-110); HDL Cholesterol 42 mg/dL (>60 Neg Risk); LDL Cholesterol, Calculated 153 mg/dL; Potassium 4.3 mmol/L (3.5-5.1); Protein, Total 7.8 g/dL (6.0-8.3); Sodium 137 mmol/L (136-145); Triglycerides 97 mg/dL (Less than 150)
== END 2016-11-23 11:37 | disposition home or self-care (01) ==
LOC: MADLAB 11:36
PROVIDERS: ATTEND Internal Medicine Cardiovascular Disease
DX: I10 Essential (primary) hypertension (principal)
CPT/HCPCS: 36415; 80053; 80061

== ENCOUNTER 2017-12-04 10:06 | Emergency (ER) | payer MEDICARE | END 2017-12-04 10:35 | disposition home or self-care (01) | LOC: MADERS 10:06 | DX: S63.592A Other specified sprain of left wrist, initial encounter (principal); I10 Essential (primary) hypertension; E11.9 Type 2 diabetes mellitus without complications; J44.9 Chronic obstructive pulmonary disease, unspecified; Z87.891 Personal history of nicotine dependence; Z79.82 Long term (current) use of aspirin; Z79.899 Other long term (current) drug therapy; X50.1XXA Overexertion from prolonged static or awkward postures, initial encounter | CPT/HCPCS: 99283 ==

== ENCOUNTER 2018-03-01 08:59 | Outpatient (CLI) | payer MEDICARE ==
--- NOTE | 2018-03-01 10:22 | CT ---
CT ABDOMEN AND PELVIS WITHOUT CONTRAST: INDICATIONS: Left-sided flank pain for six months with a history of chronic kidney disease. COMPARISON: CT abdomen and pelvis with contrast, dated 02/08/2017. FINDINGS: There is cardiomegaly with bibasilar atelectasis. The gallbladder is surgically absent. Unopacified liver and spleen are unremarkable. There is a 1.2 cm left adrenal adenoma. There is a small cortical calcification involving the right mid kidney, which is stable. There is no ruthann hydronephrosis. No definite ureteral calculus is evident. There is a small hypodensity withi n the superior pole of the left kidney, likely reflecting a cyst. This is better detailed on an MRI examination, dated 03/04/2017. The bladder is largely decompressed. There is a stable fibroid uterus. There are scattered diverticula involving the colon without evidence of active diverticulitis. There is stable mild ectasia of the infrarenal abdominal aorta, measuring up to 2.7 cm. There is scattered degenerative and osteoarthritic change. There is dextroscoliosis of the lumbar sp ine. IMPRESSION: No definite acute abnormality seen. POS: [facility]
== END 2018-03-01 09:00 | disposition home or self-care (01) ==
LOC: MADCT 08:59
PROVIDERS: ATTEND Internal Medicine Nephrology
DX: N18.2 Chronic kidney disease, stage 2 (mild) (principal)
CPT/HCPCS: 74176

== ENCOUNTER 2018-08-10 16:58 | Emergency (ER) | payer MEDICARE ==
[~2018-08-10 16:58] MED LIST changes: +Iopamidol 370 76% 200 ML VIAL ONE; -Sodium Chloride 0.9% 1,000 ML BAG ONE
[2018-08-10 17:38] LABS: #Basophils 0.1 thou/uL (0.0-0.2); #Eosinphils 0.2 thou/uL (0.0-0.7); #Lymphocytes 1.2 thou/uL (1.20-3.40); #Monocytes 0.8 thou/uL (0.11-0.59); #Neutrophils 5.2 thou/uL (1.40-6.50); %Basophils 1.6 % (0.0-1.0); %Eosinophils 2.2 % (0.0-10.0); %Lymphocytes 16.2 % (21.0-51.0); %Monocytes 10.2 % (0.0-10.0); %Neutrophils 69.7 % (42.0-75.0); Hemoglobin 13.6 g/dL (12.0-16.0); Mean Corpuscular HGB CONC 30.8 g/dL (32.0-36.0); Mean Corpuscular Hemoglobin 27.5 pg (27.0-31.0); Mean Corpuscular Volume 89.4 fL (78.0-98.0); Mean Platelet Volume 6.4 fL (7.4-10.4); Platelet Count 262 thou/uL (130-400); RBC Distribution Width 14.6 % (11.5-14.5); Red Blood Cell (RBC) Count 4.96 mill/uL (4.20-5.40); White Blood Cell (WBC) Count 7.4 thou/uL (4.8-10.8)
--- NOTE | 2018-08-10 17:49 | RAD ---
Frontal radiograph chest: 08/10/2018 COMPARISON: 09/03/2016 HISTORY: Hypoxia and shortness of breath FINDINGS: Prominent enlargement of the cardiac silhouette again noted. There is prominence of bilater al hilar shadows suggesting pulmonary vascular congestion. No pneumothorax lobar consolidation or large volume pleural fluid. Electronic device overlies the left hilar shadow. IMPRESSION: Enlarged cardiac silhouette with pulmonary vascular congestion.
[2018-08-10 17:50] LABS: ALT (SGPT) 10 U/L (8-55); AST (SGOT) 18 U/L (5-34); Albumin 3.9 g/dL (3.4-4.8); Alkaline Phosphatase 102 U/L (40-150); Anion Gap 14 mmol/L (10-20); BUN (Urea Nitrogen) 13 mg/dL (9.8-20.1); Bilirubin, Total 0.5 mg/dL (0.2-1.2); Calc. Creatinine Clearance 0 mL/min (70-130); Calcium 9.2 mg/dL (7.8-10.44); Carbon Dioxide 24 mmol/L (23-31); Chloride 108 mmol/L (98-107); Estimated GFR-MDRD 57; Globulin 3.4 g/dL (2.4-3.5); Glucose 113 mg/dL (83-110); Potassium 3.9 mmol/L (3.5-5.1); Protein, Total 7.3 g/dL (6.0-8.3); Sodium 142 mmol/L (136-145)
[2018-08-10] MEDS ORDERED: Morphine 4 MG/ML VIAL ONE (17:51)
[2018-08-10] MEDS ORDERED: Aspirin Chewable 81 MG TAB ONE (17:51)
[2018-08-10] MEDS ORDERED: Nitroglycerin 2% Ointment 1 INCH/1 GM Packet ONE (17:51)
[2018-08-10] MEDS ORDERED: Furosemide 40 MG/4 ML VIAL ONE (18:06)
--- NOTE | 2018-08-10 18:18 | RAD ---
Frontal radiograph pelvis: 08/10/2018 COMPARISON: None HISTORY: Right-sided pain radiating into the leg FINDINGS: No widening of the sacroiliac joints or pubic symphysis. The pelvic ring appears intact. Th e femoral heads project normally over the respective acetabulum. Multilevel lower lumbar spine degenerative change present, not well characterized on this exam. IMPRESSION: No displaced pelvic fracture.
--- NOTE | 2018-08-10 19:32 | CT ---
Lumbar spine CT without contrast: 08/10/2018 COMPARISON: None HISTORY: Severe pain TECHNIQUE: Axial CT imaging at 2.5 mm intervals through the lumbar spine with coronal and sagittal re formatted imaging FINDINGS: Evaluation for central canal and/or neural foraminal stenosis is limited on routine CT. There is mild aneurysmal dilatation of the abdominal aorta measuring 3.0 x 2.3 cm in the infrarenal r egion. There is atherosclerotic calcification of the abdominal aorta and its branches. Mid pole nonobstructing stone noted on the right measuring 5 mm. No anterolisthesis or retrolisthesis is noted within the lumbar spine. Vertebral body height within t he lumbar spine is maintained, with no evidence for acute fracture or dislocation. No lytic or blastic bone lesions. T12-L1: Mild facet hypertrophy with no osseous cause of significant central canal or neural foraminal stenosis L1-2: Mild bilateral facet hypertrophy and disc space narrowing with mild anterior osteophyte formati on. No osseous cause of significant central canal or neural foraminal stenosis L2-3: Mild bilateral facet hypertrophy. Probable mild disc bulge. No osseous cause of significant mundo tral canal or neural foraminal stenosis L3-4: Mild bilateral facet hypertrophy. No osseous cause of significant central canal or neural ghazal inal stenosis L4-5: Mild disc bulge suspected. Mild bilateral facet hypertrophy. No osseous cause of significant ce ntral canal or neural foraminal stenosis L5-S1: Bilateral facet hypertrophy with no osseous cause of significant central canal or neural ghazal inal stenosis. Partially imaged heart appears enlarged. IMPRESSION: No acute osseous abnormality. Degenerative change as detailed above. Evaluation for centr al canal and/or neural foraminal stenosis could be best assessed via follow-up MRI as clinically warranted. Mild aneurysmal dilatation of the infrarenal abdominal aorta noted.
--- NOTE | 2018-08-10 20:04 | CT ---
CT angiogram of the chest: 08/10/2018 COMPARISON: None HISTORY: Dyspnea, hypertension, assess for pulmonary arterial embolism TECHNIQUE: Axial CT imaging at 2.5 mm intervals through the chest with IV contrast using CT angiogram protocol. Coronal and sagittal 3-D reformatted imaging. FINDINGS: No axillary, hilar, or mediastinal lymphadenopathy. The heart is enlarged. There is reflux of contrast media into the hepatic veins and IVC, suggesting poor cardiac output. There are a few scattered foci of hyperenhancement within the hepatic parenchyma, of uncertain significance, which ma y represent transient hepatic attenuation differences. Recommend a follow-up nonemergent contrast enhanced CT examination of the abdomen for further assessment. There is scattered atherosclerotic calcification of the imaged abdominal aorta and its branches. Ther e is aneurysmal dilatation of the proximal abdominal aorta measuring up to 3.0 cm in transverse dimension. There is scattered multifocal atherosclerotic calcification of the coronary arteries as well as the t horacic aorta. No pleural, pericardial, or mediastinal fluid is noted. The pulmonary arterial vasculature is dilated suggesting pulmonary arterial hypertension. No pulmonar y arterial filling defect is seen to suggest the presence of acute pulmonary arterial embolism. There are mild scattered areas of bilateral upper lobe cystic change within the lung parenchyma. There is no dominant pulmonary parenchymal mass lesion or nodule identified within the lung parenchym a on either side. No acute osseous abnormality is noted. IMPRESSION: Dilated pulmonary arterial vasculature suggesting pulmonary arterial hypertension. No makayla dence for pulmonary arterial embolism. Numerous incidental findings as described above.
== END 2018-08-10 21:50 | disposition short-term general hospital (02) ==
LOC: MADERS 16:58
DX: M54.17 Radiculopathy, lumbosacral region (principal); E87.70 Fluid overload, unspecified; I10 Essential (primary) hypertension; R09.02 Hypoxemia; J44.9 Chronic obstructive pulmonary disease, unspecified; E11.9 Type 2 diabetes mellitus without complications; F03.90 Unspecified dementia, unspecified severity, without behavioral disturbance, psychotic disturbance, mood disturbance, and anxiety; Z87.891 Personal history of nicotine dependence; Z87.01 Personal history of pneumonia (recurrent)
CPT/HCPCS: 71045; 71275; 72131; 72170; 80053; 83735; 83880; 84484; 85025; 93005; 94760; 96374; 96375; J1940; J2270

== ENCOUNTER 2019-01-14 12:42 | Emergency (ER) | payer MEDICARE ==
--- NOTE | 2019-01-14 13:29 | RAD ---
Left shoulder 3 views HISTORY: Left shoulder injury. FINDINGS: Acromioclavicular and glenohumeral alignment are maintained. Mild osteophytosis. No acute f racture, dislocation, or aggressive osseous erosions. IMPRESSION: No acute osseous abnormalities are demonstrated.
--- NOTE | 2019-01-14 13:45 | RAD ---
Left elbow 4 views HISTORY: Left elbow injury. FINDINGS: Radiocapitellar alignment is maintained. No fluid distention of the joint capsule apparent. No acute fracture or dislocation. Irregularity of the posterior soft tissues may be related to folding of the skin or soft tissue injury. Screen artifact and dressing artifact are noted. IMPRESSION: No acute osseous abnormalities are demonstrated
--- NOTE | 2019-01-14 13:55 | CT ---
CT Brain WO Con: 01/14/2019 1:11 PM CLINICAL HISTORY: Head trauma. IMAGING TECHNIQUE: Multiple CT images were obtained of the brain without IV contrast. COMPARISON: CT the brain dated September 03, 2016 FINDINGS: Infarct: No acute infarct evident. Hemorrhage: None.. Hydrocephalus: None.. Basal cisterns: Normal.. Cerebral parenchyma: There is stable generalized cerebral atrophy.. Midline shift: None.. Cerebellum: There is stable generalized cerebellar atrophy. Brainstem: Normal. OTHER: Calvarium: Intact.. Visualized Paranasal sinuses: Clear.. Extracranial soft tissues:Normal. IMPRESSION: No acute intracranial abnormality.
--- NOTE | 2019-01-14 13:57 | CT ---
CT Cervical Spine WO Con Indication: Trauma with neck injury COMPARISON: September 03, 2016 FINDINGS: Acute fracture/subluxation: None. Spinal alignment: No acute malalignment. Craniocervical junction: Within normal limits. Vertebral body heights: Maintained. Cervical spine degenerative change: Stable moderate multilevel spondylosis. Lung apices: Biapical emphysema. IMPRESSION: No acute osseous abnormality.
--- NOTE | 2019-01-14 13:58 | RAD ---
XR Hip Lt 2-3 View INDICATION: Trauma COMPARISON: None FINDINGS: Bones: There is diffuse osteopenia. No acute fracture or subluxation demonstrated. Hip joint: There is moderate degenerative arthrosis of the left hip. SI joints and symphysis pubis: There is severe left SI joint osteoarthrosis. Intrapelvic contents: There is calcified fibroid within the left aspect of the pelvis. Surrounding soft tissues: There are prominent vascular calcifications within the adjacent soft tissue s. IMPRESSION: 1. No acute osseous abnormality.
[2019-01-14 14:04] LABS: #Basophils 0.1 thou/uL (0.0-0.2); #Eosinphils 0.1 thou/uL (0.0-0.7); #Lymphocytes 1.8 thou/uL (1.20-3.40); #Monocytes 0.7 thou/uL (0.11-0.59); #Neutrophils 4.5 thou/uL (1.40-6.50); %Basophils 1.5 % (0.0-1.0); %Eosinophils 0.7 % (0.0-10.0); %Monocytes 9.9 % (0.0-10.0); %Neutrophils 62.9 % (42.0-75.0); Hemoglobin 13.9 g/dL (12.0-16.0); Mean Corpuscular HGB CONC 31.8 g/dL (32.0-36.0); Mean Corpuscular Hemoglobin 28.4 pg (27.0-31.0); Mean Corpuscular Volume 89.5 fL (78.0-98.0); Mean Platelet Volume 6.6 fL (7.4-10.4); Platelet Count 308 thou/uL (130-400); RBC Distribution Width 13.6 % (11.5-14.5); Red Blood Cell (RBC) Count 4.91 mill/uL (4.20-5.40); White Blood Cell (WBC) Count 7.1 thou/uL (4.8-10.8)
[2019-01-14 14:21] LABS: ALT (SGPT) 12 U/L (8-55); AST (SGOT) 19 U/L (5-34); Albumin 3.9 g/dL (3.4-4.8); Alkaline Phosphatase 95 U/L (40-110); Anion Gap 16 mmol/L (10-20); BUN (Urea Nitrogen) 13 mg/dL (9.8-20.1); Calc. Creatinine Clearance 0 mL/min (70-130); Calcium 9.4 mg/dL (7.8-10.44); Carbon Dioxide 32 mmol/L (23-31); Chloride 100 mmol/L (98-107); Estimated GFR-MDRD 65; Globulin 3.2 g/dL (2.4-3.5); Glucose 106 mg/dL (83-110); Protein, Total 7.1 g/dL (6.0-8.3); Sodium 145 mmol/L (136-145)
[2019-01-14 14:54] LABS: Potassium 2.9 mmol/L (3.5-5.1)
[2019-01-14] MEDS ORDERED: Potassium Chloride 20 MEQ TAB ONE (17:04)
== END 2019-01-14 14:38 | disposition home or self-care (01) ==
LOC: MADERS 12:42
DX: S06.0X0A Concussion without loss of consciousness, initial encounter (principal); S00.03XA Contusion of scalp, initial encounter; S50.02XA Contusion of left elbow, initial encounter; S40.012A Contusion of left shoulder, initial encounter; S10.91XA Abrasion of unspecified part of neck, initial encounter; I11.0 Hypertensive heart disease with heart failure; I50.9 Heart failure, unspecified; J44.9 Chronic obstructive pulmonary disease, unspecified; E11.9 Type 2 diabetes mellitus without complications; F03.90 Unspecified dementia, unspecified severity, without behavioral disturbance, psychotic disturbance, mood disturbance, and anxiety; Z87.891 Personal history of nicotine dependence; Z79.899 Other long term (current) drug therapy; V89.2XXA Person injured in unspecified motor-vehicle accident, traffic, initial encounter
CPT/HCPCS: 36415; 70450; 72125; 80053; 85025

== ENCOUNTER 2021-03-05 16:22 | Outpatient (CLI) | payer MEDICARE ==
[2021-03-05 16:44] LABS: #Basophils 0.1 thou/uL (0.0-0.2); #Eosinphils 0.1 thou/uL (0.0-0.7); #Lymphocytes 0.7 thou/uL (1.20-3.40); #Monocytes 0.5 thou/uL (0.11-0.59); #Neutrophils 5.6 thou/uL (1.40-6.50); %Eosinophils 0.8 % (0.0-10.0); %Lymphocytes 10.5 % (21.0-51.0); %Monocytes 6.7 % (0.0-10.0); %Neutrophils 81.1 % (42.0-75.0); Hemoglobin 12.4 g/dL (12.0-16.0); Mean Corpuscular HGB CONC 29.7 g/dL (32.0-36.0); Mean Corpuscular Hemoglobin 26.6 pg (27.0-31.0); Mean Corpuscular Volume 89.4 fL (78.0-98.0); Mean Platelet Volume 6.2 fL (7.4-10.4); Platelet Count 285 thou/uL (130-400); RBC Distribution Width 14.5 % (11.5-14.5); Red Blood Cell (RBC) Count 4.66 mill/uL (4.20-5.40); White Blood Cell (WBC) Count 6.9 thou/uL (4.8-10.8)
[2021-03-05 16:58] LABS: ALT (SGPT) 24 U/L (8-55); AST (SGOT) 30 U/L (5-34); Albumin 3.8 g/dL (3.4-4.8); Alkaline Phosphatase 70 U/L (40-110); Anion Gap 17 mmol/L (10-20); BUN (Urea Nitrogen) 33 mg/dL (9.8-20.1); Bilirubin, Total 0.5 mg/dL (0.2-1.2); Calc. Creatinine Clearance 0 mL/min (70-130); Calcium 8.9 mg/dL (7.8-10.44); Carbon Dioxide 26 mmol/L (23-31); Chloride 105 mmol/L (98-107); Glucose 103 mg/dL (83-110); Potassium 4.5 mmol/L (3.5-5.1); Protein, Total 6.8 g/dL (5.8-8.1); Sodium 143 mmol/L (136-145)
== END 2021-03-05 16:23 | disposition home or self-care (01) ==
LOC: MADLAB 16:22
DX: I48.0 Paroxysmal atrial fibrillation (principal); I27.21 Secondary pulmonary arterial hypertension; E11.22 Type 2 diabetes mellitus with diabetic chronic kidney disease; I12.9 Hypertensive chronic kidney disease with stage 1 through stage 4 chronic kidney disease, or unspecified chronic kidney disease; N18.9 Chronic kidney disease, unspecified
CPT/HCPCS: 80053; 83880; 85025